=== PATIENT | female | born 1955 | race Caucasian/White ===

== ENCOUNTER → 2021-08-15 14:22 | Outpatient (BNVA) | payer MEDICARE, SELFPAY | PROVIDERS: PCP Internal Medicine; Visit Provider Nurse Practitioner Family | DX: G20 Parkinson's disease (principal) | CPT/HCPCS: 99212 ==

== ENCOUNTER 2024-09-07 14:53 | Outpatient (AMB) | payer MEDICARE, SELFPAY ==
--- NOTE | 2024-09-07 14:57 | A.OFFVIS_ITS ---
Vital Signs 09/07/24 14:59 Height 5 ft 4 in Weight 183 lb BMI 31.4 BP 124/82 Blood Pressure Location Rt brachial Position Sitting Intake Visit Reasons: ENP - Extrapyramidal, Movement Disorder Intake Note: Patient presents for tremors, last seen in August of 2021 by Daisy Drum Reel Cutter Required: Yes Allergies No Known Allergies Allergy (Verified 09/07/24 14:59) Medication List - Last Reconciled 09/07/24 by Ria Panchal MD calcium carbonate-vitamin D3 250 mg-3.125 mcg (125 unit) 1 tab PO DAILY lanadelumab-flyo 300 mg subcut Q2W multivitamin 1 tab PO DAILY omega 8-aod-xwl-fish oil 1,000 (120-180) mg (Fish Oil) 1 cap PO DAILY HPI Comments Details: 69-yr-old female presents reevaluation of parkinsonism . she was last seen in 2021 . she currently is on treatment with Doxycycline for Lyme disease. She has leslie hand and speech tremors that started 5 years ago. The tremors are mostly in her right UE and is present at rest and action. she also has word finding difficulties and stuttering speech. The speech problems started about 5 years ago- she was taken to hospital and stroke was ruled out.she denies any significant memory issues. Sleep- talks in her sleep Mood- normal Motivation- yes Speech- stuttering , word finding . No change in voice No drooling Handwriting- smaller Utensils- OK dressing- no problems SHower- no problems Turning in bed is OK Gait- off balance , multiple falls - last fall was 1 week ago- not sure how she fell. she uses walking sticks sometimes No hallucinations No diplopia No vertigo No GI issues No constipation DIET COKE HELPS HER TREMORS AND STUTTERING Pt denies any significant interval medical changes. She was a participant on a study for Lanadelumab for hereditary angioedema type III. But now she is on Firazyr as needed . [facility] Medical History (Updated 09/07/24 @ 15:40 by Ria Panchal MD) Adult stuttering Coarse tremors Osteoporosis Lyme disease HX: breast cancer Surgical History History of surgery on wrist Hx of hysterectomy Social History Household Members: Spouse Alcohol intake: never Patient Tobacco Use Status: Never used Tobacco Physical Exam Vital Signs: Last Vital Signs BP 124/82 09/07/24 14:59 BMI result Body Mass Index 31.4 Const General: cooperative, healthy appearing, comfortable and anxious Nutritional Appearance: overweight Orientation/consciousness: patient oriented x3 Eyes Pupils: Equal, round and reactive pupils present Neuro Other: Good facial expression and blink Mild posturla and action tremors leslie UE Stuttering speech - ? hypophonia Tone normal Gait good arm swings antalgic gait General: patient oriented x3, tone normal, moves all extremities and no focal motor deficits Cranial nerves: Yes Facial sensation intact/muscles of mastication intact, Yes Equal, round and reactive pupils present, Yes Bilaterally intact EOM present, Yes Nystagmus not present, Yes Normal facial strength present, Yes Midline tongue present and Yes Ability to bilaterally elevate shoulders present Cognition (Neuro): normal cognition Gait exam (Neuro): Antalgic gait present Motor exam (neuro): 5/5 motor strength present throughout and Normal motor muscle tone present throughout Deep tendon reflexes (DTR's): Right triceps reflex intensity grade: 1+, Left triceps reflex intensity grade: 1+, Rt Biceps (C5, C6): 1+, Left biceps reflex intensity grade: 1+, Right brachioradialis reflex intensity grade: 1+, Left brachioradialis reflex intensity grade: 1+, Right patellar reflex intensity grade: 1+ and Left patellar reflex intensity grade: 1+ Coordination: [id number] test normal Assessment & Plan Assessment & Plan (1) Coarse tremors: Comment: no evidenc eof parkinsons on todays visit Code(s): G25.2 - Other specified forms of tremor Category: Medical (2) 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
[2024-09-07 14:59] VITALS: BP 124/82; BMI 31.4
== END 2024-09-07 15:46 | disposition home or self-care (01) ==
PROVIDERS: PCP Internal Medicine; Visit Provider Psychiatry & Neurology Neurology
DX: G25.2 Other specified forms of tremor (principal); F98.5 Adult onset fluency disorder
CPT/HCPCS: 99204; G2211

== ENCOUNTER → 2024-09-07 14:53 | Outpatient (BNVA) | payer MEDICARE, SELFPAY | PROVIDERS: PCP Internal Medicine; Visit Provider Psychiatry & Neurology Neurology | DX: G25.2 Other specified forms of tremor (principal); F98.5 Adult onset fluency disorder; A69.20 Lyme disease, unspecified; Z79.2 Long term (current) use of antibiotics | CPT/HCPCS: 99202 ==

== ENCOUNTER 2024-12-30 12:53 | Outpatient (RCR) | payer MEDICARE, SELFPAY ==
--- NOTE | 2025-01-07 14:25 | MHC.SP.ADU ---
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 Panchal. Brooklyn is followed by the Neurology and Sleep office for evaluation of Parkonsonism. Brooklyn reports that she was not diagnosed with Parkinson?s disease after seeing various specialists, but that ?[she] may have something similar.? Brooklyn presents with tremors, mostly in her right UE, both at rest and with action. She also reports word finding difficulties and stuttering for the past 5 years. Brooklyn reported she suddenly ?could not talk? one day 5 years ago and was brought to [facility], where stroke was ruled out, though she continues to have residual speech and language difficulties to date. Brooklyn feels that when she drinks Diet Coke, her stuttering ?goes away,? and continues to drink this soda, which she characterizes as ?medicine.? She does not have this effect with any other carbonated or caffeinated beverage. When she shared this with other healthcare providers, she was advised to cease consumption of the soda for health reasons. Brooklyn reports a loud humming sound in her ears that she has had for a while, though she denies ever seeing an counter hop or having any other concerns regarding her hearing. Brooklyn denies having any significant memory or cognitive issues. Brooklyn also mentioned her voice ?gets softer? when she has ?episodes,? but did not further elaborate on this as her main concern is her word finding and fluency. Her voice was perceived to be appropriate in volume and pitch during this evaluation. 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 She was accepted into dentistry school, but did not attend due to the finances. Patient lives in a private residence with her . She previously worked at a [employer] and is now retired. She reports history of allergies, asthma, cancer, ear infections, Lyme disease, and migraines. Her migraines do not seem to affect her speech. She also mentions having angioedema type 3, with swelling that affects her throat sometimes. Per Brooklyn, this affects the way her swallow feels at times, but she denies having choking episodes, globus sensation, or pain with swallowing. Medical History: Other: Medical History (Updated 09/07/24 @ 15:40 by Ria Panchal MD) Adult stuttering Coarse tremors Osteoporosis Lyme disease HX: breast cancer Surgical History History of surgery on wrist Hx of hysterectomy Social History: Employment Status: Retired Highest level of education obtained: Completed Bachelor's Current Living Situation: Private residence w/ Assistive Devices in use: Glasses/Contacts Past Speech Language Therapy: None Assessment Speech Production: Nonfluent Clinical Impression: Impaired Observations: FLUENCY: The Stuttering Severity Instrument-4 (SSI-4) was used to assess the frequency and duration of disfluencies, as well as the physical concomitants and naturalness of Fletcher speech. Fletcher fluency was assessed during reading and picture description tasks. Once the samples were collected, the data was analyzed to determine the types and rates of disfluencies (i.e. interjections, sound/syllable repetitions, word repetitions, phrase repetitions, revisions, blocks, and sound prolongations). Fletcher performance on the SSI-4 is summarized below: READING SAMPLE: Stuttering Events: 29 Number of Syllables: 369 Percent of Stuttered Syllables (%SS): 7.9% Analysis of Disfluency Type (Reading Sample): Interjections (i.e. uhm, uh): 0% Sound/Syllable Repetitions: 28% Word Repetitions: 14% Phrase Repetitions: 17% Revision: 0% Block: 3% Sound Prolongation: 38% SPEAKING SAMPLE: Stuttering Events: 22 Number of Syllables: 227 Percent of Stuttered Syllables (%SS): 9.7% Analysis of Disfluency Type (Speaking Sample): Interjections (i.e. uhm, uh): 41% Sound/Syllable Repetitions: 5% Word Repetitions: 18% Phrase Repetitions: 9% Revision: 0% Block: 18% Sound Prolongation: 9% AVERAGE %SS: 8.8% Frequency Task Score: 13 Duration Scale Score: 8 (2 seconds) Physical Concomitant Scale Score: 2 Total Score: 23 Percentile: 24-40 Severity: MILD Brooklyn?s dysfluencies are most often characterized by sound prolongations (i.e. ?klthrs-bji-acwrvqgo?), blocking (held bilabial articulatory posture with lips pressed together for the word ?boat?), interjections (i.e. filler words such as ?uhm, uh?), word repetitions (i.e. ?on-on-on?), and part-word repetitions (i.e. ?h-j-v-c-coastline?). This slowed Brooklyn?s rate of speech, contributed to unnatural pausing, and halted her speech flow, all of which conversely impacted her perceived speech naturalness. Brooklyn presented with minimal physical concomitants and secondary behaviors, which included avoidance of eye contact, lip pressing, and jaw tension. Secondary behaviors are triggered by the experience of stuttering or anticipation of it. Although individuals who stutter use them in an attempt to terminate the stutter, they are often maladaptive and exacerbate core disfluent behaviors. According to the SSI-4, Brooklyn's disfluencies were classified as mild in severity, with a Total Score of 23 falling in the 24-40 percentile. Tests of Speech & Lang Adults: BNT Clinical Impression: Impaired Observations: WORD FINDING: Brooklyn completed the [place] Naming Test (BNT) Standard Form. She was presented with simple line drawings, which she was instructed to name in a confrontation naming task. Brooklyn correctly named 35 out of 60 images independently. She was able to name common nouns in most trials, but exhibited difficulty naming less salient items, such as dominoes, tongs, tripod, unicorn, pelican, and latch. Brooklyn groped for words (i.e. ?I know what it is, but I can?t think??) and frequently produced semantic paraphasias (i.e. naming snail as ?squid,? globe as ?world,? and dominoes as ?checkers?), mislabeling items with other words that were semantically related. She also used nonword labels, for example, naming both accordion and harmonica as ?harpsicord.? Brooklyn was not always aware of these errors, but did make attempts to correct herself when they were brought to her attention. She demonstrated knowledge of the presented items and/or attempted to cue herself, by gesturing to convey meaning (i.e. gestured motion of throwing a dart) or describing the item (i.e. ?holds animals together? for ?yoke,? ?I use to hold my camera up? for ?tripod,? and ?special bird on the shore? for ?pelican?). Brooklyn identified the correct word from a choice of 4 written words in 21/25 trials. Brooklyn presents with a mild anomia, with difficulty retrieving words in conversation and on confrontational naming. 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 Brooklyn experienced sudden speech changes and was brought to the hospital 5 years ago. Stroke was reportedly ruled out during that hospital visit. Patient is currently followed by Neurology and Sleep for concern of a parkinsonian condition. She presents today for a speech evaluation, with concerns pertaining to her stuttering and difficulty retrieving words. Brooklyn does present with a mild fluency disorder, characterized by whole-word repetitions, part-word repetitions, blocking, and sound prolongations. Patient presents with some physical manifestations, such as lip pressing, oral tension, and poor eye contact, as well. Patient?s speech flow is further affected by word finding pauses. On assessment, Brooklyn presents with mild anomia, which is apparent with confrontational naming and in the context of spontaneous conversation. It is recommended that Brooklyn participate in weekly 1:1 speech and language intervention for 12 weeks in the outpatient setting to improve fluency and train strategies for word retrieval. Recommendation for Speech Therapy: Outpatient Speech Therapy Frequency/Duration: 1x weekly x 12 weeks Date Range for Service Requested: Time to Reassess: PRN Cleat Blanker Goals: 1.) Patient will utilize a variety of word-finding strategies at the conversational level with minimal assistance in 80% opportunities presented to her. 2.) Patient will use fluency shaping and stuttering modification strategies during structured conversation in 4/5 opportunities independently. Short Term Goals: Goal # : 1.1. Patient will list 5+ members per spoken category in 80% of trials when provided with minimal verbal prompts. 1.2. Patient will name abstract words and phrases from description at 80% accuracy given minimal verbal prompts. 1.3. Patient will produce a minimum of 4 different features, when presented with a word using semantic feature analysis (SFA), given minimal verbal prompts, with 80% accuracy. Goal Status: New Goal Goal# : 2.1. Patient will participate in ongoing education and discussion regarding neurogenic stuttering throughout her course in treatment with 100% participation. 2.2. Patient will be able to correctly identify location of physical tension during 80% of stuttering episodes in a structured task when provided with minimal verbal cues. Goal Status: New Goal Goal # : 2.3. Patient will use 2 fluency shaping strategies (i.e. relaxed breathing, slowed speech, light articulatory contact, stretching), during a structured treatment task, in 80% of opportunities and minimal level cuing. Goal Status: New Goal Goal # : 2.4. Patient will use the stuttering modification strategy cancellation, following self-identified disfluencies, during a structured treatment task, in 80% of opportunities and minimal level cuing. 2.5. Patient will use pull-out strategies, during a structured reading aloud task, in 80% of opportunities and minimal level cuing. 2.6. Patient will use preparatory sets, prior to moments of anticipated stuttering, within a conversational treatment task, in 80% of opportunities and minimal level cuing. Goal Status: New Goal Recommended Referrals to be Discussed with Primary Care Provider: Neurology Patient Education: Completed: Yes Patient/Caregiver Education: Described Results of Evaluation Patient expressed understanding of evaluation Patient requires further education on strategies Comments/Barriers to Learning: It was a pleasure to meet and work with Brooklyn. If you have any questions about the contents of this report, do not hesitate to contact me at [phone] or [email or web address]. Children Librarian Clinican/Clinical Fellow: No Supervisory Statement: N/A Speech Language Pathologist: Kyra Mac M.A., CCC-COIL WINDER
== END 2025-01-20 11:38 | disposition still patient (30) ==
LOC: HO.SH 12:53
PROVIDERS: PCP Internal Medicine; Visit Provider Psychiatry & Neurology Neurology
DX: F98.5 Adult onset fluency disorder (principal)
CPT/HCPCS: 92523